=== PATIENT | male | born 1945 | race Caucasian/White ===

== ENCOUNTER 2021-04-05 11:08 | Emergency (ER) | payer OTHER, MEDICARE ==
--- NOTE | 2021-04-05 11:14 | EDM.PDOC ---
ED HPI GENERAL MEDICAL PROBLEM - General Chief Complaint: Abdominal Pain Stated Complaint: STOMACH IS HARD, TROUBLE BREATHING, NOT EATING Time Seen by Provider: 04/05/21 11:45 Source of Information: Reports: Patient History Limitations: Reports: No Limitations - Related Data Allergies Allergy/AdvReac Type Severity Reaction Status Date / Time oxycodone Allergy Agitation Verified 04/05/21 11:40 Home Meds: Home Meds *Alendronate 05/08/14 [History] *Methocarbamol 05/08/14 [History] *Metoprolol mg PO DAILY 05/08/14 [History] *Nifedipine mg PO BID 05/08/14 [History] *Simvastatin mg PO DAILY 05/08/14 [History] *Solifenicin mg PO BID 05/08/14 [History] *Tramadol 05/08/14 [History] Albuterol Sulfate [Albuterol Sulfate HFA] 05/08/14 [History] Aspirin [Low Dose Aspirin EC] 81 mg PO DAILY 05/08/14 [History] Calcitonin,Boyd,Synthetic [Miacalcin] 05/08/14 [History] Cholecalciferol (Vitamin D3) [Vitamin D] 05/08/14 [History] Tiotropium [Spiriva HandiHaler] 05/08/14 [History] ED ROS GENERAL - Review of Systems Review Of Systems: Comprehensive ROS is negative, except as noted in HPI. Course - Vital Signs Last Recorded V/S: Last Vital Signs Temp 98.1 F 04/05/21 11:38 Pulse 71 04/05/21 11:38 Resp 22 H 04/05/21 11:38 BP 122/58 L 04/05/21 11:38 Pulse Ox 93 L 04/05/21 11:38 Departure - Discharge Information Referrals: PCP,None [Primary Care Provider] - Forms: ED Department Discharge Sepsis Event Note (ED) - Focused Exam Vital Signs: Vital Signs Temp Pulse Resp BP Pulse Ox 04/05/21 11:38 98.1 F 71 22 H 122/58 L 93 L 04/05/21 11:31 98.1 F 71 22 H 122/58 L 90 L - Problem List Review Problem List Initiated/Reviewed/Updated: Yes
[2021-04-05] MEDS ORDERED: Albuterol/Ipratropium 3.0-0.5 MG/3 ML Neb Soln NEB ONE (12:16)
--- NOTE | 2021-04-05 12:29 | EDM.PDOC ---
ED HPI GENERAL MEDICAL PROBLEM - General Chief Complaint: Respiratory Problem Stated Complaint: STOMACH IS HARD, TROUBLE BREATHING, NOT EATING Time Seen by Provider: 04/05/21 11:45 Source of Information: Reports: Patient History Limitations: Reports: No Limitations - History of Present Illness INITIAL COMMENTS - FREE TEXT/NARRATIVE: This is a 76 year old male presenting with shortness of breath. The patient is a somewhat poor historian, but it sounds like he has been having increasing shortness of breath over at least the past several weeks. He is here from [facility], he just arrived yesterday after a 3 day car trip. He reports that his symptoms have worsened recently. SOB is somewhat worse with exertion and he feels improved in an upright position. He hasn't noticed any increased leg swelling, but has some mild edema at baseline. He reports a chronic cough that is maybe slightly worse. He was seen "recently" by his report and told he might be developing pneumonia, but was never treated. He denies fever. He denies chest pain. He notes that he has some "heart blockage" that they couldn't put a stent in or do angioplasty. He took 2 nitro this morning without any change in his symptoms. He is also complaining of increasing abdominal discomfort over the past few weeks associated with distention. He denies nausea or vomiting, but has decreased appetite. He denies history of DVT/PE. Additional history and further details about the timeline of his symptoms are not clear as he is a poor historian. The patient also notes that he had a partial left lung resection (~20% of his lung) in the past due to a ?mass. - Related Data Allergies Allergy/AdvReac Type Severity Reaction Status Date / Time oxycodone Allergy Agitation Verified 04/05/21 11:40 Home Meds: Home Meds *Alendronate 70 mg PO DAILY 05/08/14 [History] *Metoprolol 100 mg PO DAILY 05/08/14 [History] *Solifenicin 5 mg PO BID 05/08/14 [History] Albuterol Sulfate [Albuterol Sulfate HFA] 2 puff IN Q4H 05/08/14 [History] Aspirin [Low Dose Aspirin EC] 81 mg PO DAILY 05/08/14 [History] Cholecalciferol (Vitamin D3) [Vitamin D] 1 tab PO DAILY 05/08/14 [History] Tiotropium [Spiriva HandiHaler] 1 puff IN DAILY 05/08/14 [History] Furosemide [Lasix] 40 mg PO DAILY 04/05/21 [History] Gabapentin [Neurontin] 800 mg PO TID 04/05/21 [History] Levothyroxine Sodium [Synthroid] 25 mcg PO ACBREAKFAST 04/05/21 [History] Nitroglycerin 0.4 mg SL ASDIRECTED PRN 04/05/21 [History] amLODIPine [Norvasc] 5 mg PO DAILY 04/05/21 [History] Past Medical History Cardiovascular History: Reports: CAD, Hypertension. Denies: Blood Clots/VTE/DVT, Heart Failure Respiratory History: Reports: COPD Endocrine/Metabolic History: Reports: Hypothyroidism. Denies: Diabetes, Type I, Diabetes, Type II, Diabetes Mellitus, Type 3c Hematologic History: Denies: Anticoagulation Therapy - Past Surgical History Respiratory Surgical History: Reports: Lung Resection (Left lobectomy) Social & Family History - Family History Family Medical History: No Pertinent Family History - Tobacco Use Tobacco Use Status *Q: Never Tobacco User - Caffeine Use Caffeine Use: Reports: Soda - Recreational Drug Use Recreational Drug Use: No ED ROS GENERAL - Review of Systems Review Of Systems: Comprehensive ROS is negative, except as noted in HPI. ED EXAM, GENERAL - Physical Exam Exam: See Below Exam Limited By: No Limitations General Appearance: Alert, Mild Distress (due to SOB) Nose: Normal Inspection Throat/Mouth: Normal Inspection Head: Atraumatic, Normocephalic Neck: Supple, Full Range of Motion Respiratory/Chest: Other (mild tachypnea and increased work of breathing, but speaking in normal sentences. Decreased breath sounds in the bases with wheezing throughout the remainder of the lungs.) Cardiovascular: Regular Rate, Rhythm GI/Abdominal: Soft, Non-Tender, Distended. No: Guarding, Rigid, Rebound Extremities: Pedal Edema Neurological: Alert, Oriented, Normal Cognition Psychiatric: Normal Affect, Normal Mood Skin Exam: Warm, Dry, Other (mild chronic venous stasis changes to bilatearl lower extremities.) #1 Interpretation EKG Date: 04/05/21 Time: 12:40 Rhythm: NSR Rate (Beats/Min): 70 P-Wave: Present Comparison: NA - No Prior EKG EKG Interpretation Comments: RBBB Course - Vital Signs Last Recorded V/S: Last Vital Signs Temp 98.1 F 04/05/21 11:38 Pulse 71 04/05/21 14:26 Resp 22 H 04/05/21 13:52 BP 120/67 04/05/21 14:26 Pulse Ox 91 L 04/05/21 14:26 - Orders/Labs/Meds Orders: Active Orders 24 hr Category Date Time Status EKG 12 Lead [EK] Stat Ther 04/05/21 12:15 Ordered Labs: Laboratory Tests 04/05/21 04/05/21 04/05/21 Range/Units 12:33 12:34 12:34 WBC 10.1 (4.5-11.0) K/uL RBC 5.24 (4.30-5.90) M/uL Hgb 16.0 H (12.0-15.0) g/dL Hct 48.3 (40.0-54.0) % MCV 92 (80-98) fL MCH 31 (27-31) pg MCHC 33 (32-36) % Plt Count 136 L (150-400) K/uL Neut % (Auto) 90.0 H (36-66) % Lymph % (Auto) 4.6 L (24-44) % Gage % (Auto) 5.2 (2-6) % Eos % (Auto) 0.1 L (2-4) % Baso % (Auto) 0.1 (0-1) % Sodium 140 (140-148) mmol/L Potassium 4.0 (3.6-5.2) mmol/L Chloride 104 (100-108) mmol/L Carbon Dioxide 27 (21-32) mmol/L Anion Gap 8.8 (5.0-14.0) mmol/L BUN 13 (7-18) mg/dL Creatinine 1.1 (0.8-1.3) mg/dL Est Cr Clr Drug Dosing 56.24 mL/min Estimated GFR (MDRD) > 60 (>60) BUN/Creatinine Ratio Not Reportable Glucose 105 (74-106) mg/dL Calcium 8.2 L (8.5-10.1) mg/dL Total Bilirubin 1.4 H (0.2-1.0) mg/dL AST 17 (15-37) U/L ALT 24 (12-78) U/L Alkaline Phosphatase 81 (46-116) U/L Troponin I < 0.017 (0.000-0.056) ng/mL NT-Pro-B Natriuret Pep 642 H (5-450) pg/mL Total Protein 5.7 L (6.4-8.2) g/dL Albumin 2.9 L (3.4-5.0) g/dL Globulin 2.8 (2.3-3.5) g/dL Albumin/Globulin Ratio 1.0 L (1.2-2.2) Influenza Type A RNA Negative (NEGATIVE) RSV RNA (INAAT) Negative (NEGATIVE) Influenza Type B RNA Negative (NEGATIVE) SARS-CoV-2 RNA (SEN) Negative (NEGATIVE) Meds: Medications Discontinued Medications Generic Name Dose Route Start Last Admin Trade Name Freq PRN Reason Stop Dose Admin Albuterol/Ipratropium 3 ml 04/05/21 12:16 04/05/21 12:43 Albuterol/Ipratropium 3.0-0.5 Mg/3 Ml Neb Soln NEB 04/05/21 12:17 3 ml ONETIME ONE Administration Sodium Chloride 100 mls @ 3.5 mls/sec 04/05/21 13:30 04/05/21 13:46 Normal Saline IV 04/05/21 13:31 4 mls/sec ASDIRECTED DANIELLA Administration Iopamidol 100 ml 04/05/21 13:30 04/05/21 13:46 Iopamidol 755 Mg/Ml 100 Ml Bottle IV 04/05/21 13:31 100 ml . DIRECTED DANIELLA Administration Sodium Chloride 10 ml 04/05/21 13:18 04/05/21 13:46 Sodium Chloride 0.9% 10 Ml Syringe FLUSH 04/05/21 13:19 10 ml ONETIME PRN Administration per radiology protocol - Re-Assessments/Exams Free Text/Narrative Re-Assessment/Exam: 04/05/21 13:42 Patient reassessed after nebulizer treatment - he is breathing more comfortably without tachypnea and wheezing has improved slightly. Oxygen saturations 92% on room air. Departure - Departure Time of Disposition: 15:26 Disposition: Home, Self-Care 01 Clinical Impression: COPD with exacerbation, Shortness of breath - Discharge Information Instructions: Chronic Obstructive Pulmonary Disease, [id number] Referrals: PCP,None [Primary Care Provider] - Forms: ED Department Discharge Additional Instructions: I think your shortness of breath is caused by a flare up of your COPD. Please use your inhalers as prescribed. Take the antibiotic and prednisone as prescribed as well. Please return to the Emergency Department if you develop high fever, worsening SOB, chest pain, or other concerning symptoms. Sepsis Event Note (ED) - Evaluation Sepsis Screening Result: No Definite Risk - Focused Exam Vital Signs: Vital Signs Temp Pulse Resp BP Pulse Ox 04/05/21 14:26 71 120/67 91 L 04/05/21 13:56 71 110/60 91 L 04/05/21 13:52 72 22 H 116/64 94 L 04/05/21 12:57 106/66 04/05/21 12:45 69 16 96/63 93 L 04/05/21 12:36 70 96/63 91 L 04/05/21 11:57 74 113/65 88 L 04/05/21 11:38 98.1 F 71 22 H 122/58 L 93 L 04/05/21 11:31 98.1 F 71 22 H 122/58 L 90 L - Problem List Review Problem List Initiated/Reviewed/Updated: Yes - My Orders Last 24 Hours: My Active Orders 04/05/21 12:15 EKG 12 Lead [EK] Stat - Assessment/Plan Last 24 Hours: My Active Orders 04/05/21 12:15 EKG 12 Lead [EK] Stat Assessment:: This is a 76 year old male presenting with increasing SOB, as well as some abdominal pain. A broad differential diagnosis was considered, including but not limited to COPD exacerbation, pneumonia, CHF, PE, pneumothorax, angina, bowel obstruction, diverticulitis, gastritis, pancreatitis, among others. He is afebrile here. oxygen saturations are in the upper 80's to low 90's on room air with wheezing present. he improved after a duo-neb with oxygen saturations 90- 96% and decreased wheezing. EKG was obtained and showed RBBB, but no evidence of acute ischemia. Troponin is negative. I doubt his symptoms are due to ACS. COVID, influenza, and RSV negative. The remainder of his labs are unrevealing aside from BNP being mildly elevated. PE was a consideration given his 3 day [address] trip so a CT pulmonary angio was obtained. This showed no evidence of PE or other acute pulmonary pathology. A pulmonary nodule was noted and patient was informed of this and the need to follow up for further evaluation. There is no evidence of pneumonia or pleural effusion. No pulmonary edema noted. Additionally, CT abd/pelvis did not reveal any obvious cause of his abdominal discomfort. He does have changes of COPD on his CT and I suspect that his symptoms are most likely from a COPD exacerbation. It is possible he has a mild heart failure exacerbation with his BNP being elevated, but he does not have significant lower extremity edema and does not have evidence of pulmonary edema on CXR. He is chronically on lasix so I did suggest that he could take an extra does of lasix for a few days to see if that helped. I will also plan to treat lopez granger for a COPD exacerbation with prednisone and doxycycline. I discussed possible admission with the patient and his daughter, but the patient did not want to be admitted. I did have him ambulate around the department with pulse ox monitoring and he maintained oxygen saturations 90-96% while walking. Therefore, i will let him go home with the above plan and have him follow up with his PCP. He was instructed to return to the ED for any new or worsening symptoms, including fever, worsening SOB, chest pain, or other concerning symptoms.
[2021-04-05] MEDS ORDERED: Sodium Chloride 0.9% 10 ML Syringe FLUSH PRN (13:18)
[2021-04-05 13:28] LABS: CORONAVIRUS COVID-19 NAA NEGATIVE (NEGATIVE)
[2021-04-05] MEDS ORDERED: Iopamidol 755 Mg/ML 100 ML Bottle IV SCH (13:30)
[2021-04-05] MEDS ORDERED: Sodium Chloride 0.9% 100 ML IV SCH (13:30)
--- NOTE | 2021-04-05 14:20 | CT ---
Ang Chest CLINICAL HISTORY: Shortness of breath TECHNIQUE: Thin section axial contiguous tomographic sections were taken through the chest after bolus IV iodinated contrast administration. Coronal and sagittal images were reconstructed. Auto dosage reduction and iterative reconstruction techniques employed. FINDINGS: There are multiple subpleural blebs in the apices. There is changes of previous partial left pneumonectomy. There is some pleural parenchymal scarring in the left lower lobe. There is a 6 x 9 mm pleural-based nodule in the right middle lobe there is scattered calcified granulomata in the left lower lobe. No filling defects are identified in the pulmonary arteries. There are a few scattered small nonspecific lymph nodes in the mediastinum. IMPRESSION: No evidence of pulmonary embolus Changes of COPD Previous partial left pneumonectomy 6 x 9 mm pleural-based nodule right middle lobe. Recommend follow-up using Fleischner Society criteria FLEISCHNER CRITERIA (2017) Incidental Pulmonary Nodule Follow-up SOLID NODULES: Nodule size <6 mm -single and multiple nodules in low risk patient: no routine follow-up -single and multiple nodules in high risk patient: optional CT at 12 months Nodule size 6-8 mm -single nodule in low risk patient: CT at 6-12 months, then consider CT at 18-24 months -multiple nodules in low risk patient: CT at 3-6 months, then consider CT at 18-24 months -single nodule in high risk patient: CT at 6-12 months, then CT at 18-24 months -multiple nodules in high risk patient: CT at 3-6 months, then CT at 18-24 months Nodule size >8 mm -single nodule in both low and high risk patient: consider CT, PET/CT, or tissue sampling at 3 months -multiple nodules in low risk patient: CT at 3-6 months, then consider CT at 18-24 months -multiple nodules in high risk patient: CT at 3-6 months, then CT at 18-24 months
--- NOTE | 2021-04-05 14:41 | CT ---
Abdomen Pelvis w Cont CLINICAL HISTORY: Abdominal pain and distention COMPARISON: None. TECHNIQUE: Transverse scans were obtained from the base of the lungs to the pubic symphysis following oral contrast and IV infusion of contrast.Auto dosage reduction and iterative reconstructiontechniques employed. FINDINGS: The lung bases show a few scattered granulomata and some left lower lung scarring. The liver contains multiple granulomata. There is no mass or biliary dilatation. The gallbladder has a normal contour. The spleen contains multiple granulomata. The pancreas shows atrophic change and diffuse fatty infiltration. The adrenal glands appear normal bilaterally . The kidneys show no mass, stones or hydronephrosis. There are some vascular calcifications.. The ureters have normal course and contour. The aorta contains an no orbital iliac stent graft. There is no evidence to suggest endoleak. There is moderate diffuse calcification of the visceral arteries. Includes the renal arteries with suggestion of some bilateral renal artery stenosis. There is no suspicious retroperitoneal adenopathy. Small intestinal configuration is nonacute. There is gas and feces throughout the colon. Appendix is been removed IMPRESSION: Previous granulomatous exposure Moderate diffuse atherosclerotic vascular disease. There is an aorto iliac stent graft in place without obvious endoleak. Probable bilateral renal artery stenosis
== END 2021-04-05 15:59 | disposition home or self-care (01) ==
LOC: JP.ED 11:08
DX: J44.1 Chronic obstructive pulmonary disease with (acute) exacerbation (principal); I25.10 Atherosclerotic heart disease of native coronary artery without angina pectoris; I10 Essential (primary) hypertension; E03.9 Hypothyroidism, unspecified; Z88.5 Allergy status to narcotic agent; Z79.899 Other long term (current) drug therapy; Z79.82 Long term (current) use of aspirin; Z20.822 Contact with and (suspected) exposure to COVID-19
CPT/HCPCS: 0241U; 36415; 71275; 74177; 80053; 83880; 84484; 85025; 93005; 94640; 99285; Q9967; J7620-GY